=== PATIENT | male | born 1965 | race Caucasian/White ===

== ENCOUNTER 2021-04-11 13:30 | Emergency (ER) | payer OTHER ==
[2021-04-11 15:31] LABS: HEMOGLOBIN 14.9 gm/dl (14.0-17.5); RED BLOOD COUNT 4.71 M/UL (4.20-5.50); WHITE BLOOD COUNT 4.4 K/UL (4.5-11.0)
[2021-04-11 16:01] LABS: BUN/CREATININE RATIO 14 (0-10)
== END 2021-04-11 17:07 | disposition home or self-care (01) ==
LOC: ER1 13:30
PROVIDERS: Physician Assistant Medical
DX: U07.1 COVID-19 (principal); I10 Essential (primary) hypertension; E11.9 Type 2 diabetes mellitus without complications; Z88.0 Allergy status to penicillin
CPT/HCPCS: 71045; 80053; 85025; 99283; U0002

== ENCOUNTER → 2022-01-02 | Outpatient (CLI) | payer OTHER | LOC: KOH-I 12-29 10:15 | DX: R94.5 Abnormal results of liver function studies (principal); K76.0 Fatty (change of) liver, not elsewhere classified | CPT/HCPCS: 76705 ==